=== PATIENT | female | born 1995 | race African-American/Black ===

== ENCOUNTER 2022-09-09 22:13 | Emergency (ER) | payer OTHER ==
[~2022-09-09] VITALS: Ht 170.2 cm; Wt 62.4 kg
[2022-09-09 22:15] VITALS: BP 106/68
[2022-09-10] MEDS ORDERED: IBUPROFEN 600MG TABLET PO STA (00:02)
[2022-09-10] MEDS ORDERED: IPRATROPIUM BROMIDE (0.02%) 0.5MG/2.5ML NEB HHN STA (00:09)
[2022-09-10] MEDS ORDERED: ALBUTEROL (0.083%) 2.5MG/3ML NEB HHN STA (00:09)
[2022-09-10 00:10] LABS: CLARITY URINE CLEAR (CLEAR); COLOR URINE DARK YELLOW (YELLOW); KETONES URINE TRACE (NEGATIVE); LEUKOCYTE ESTERASE URINE NEGATIVE (NEGATIVE); NITRITE URINE NEGATIVE (NEGATIVE); OCCULT BLOOD URINE TRACE (NEGATIVE); PROTEIN URINE TRACE (NEGATIVE); SPECIFIC GRAVITY URINE 1.035 (1.005-1.030)
[2022-09-10] MEDS ORDERED: ALBU18HF2 IH (01:31)
[2022-09-10] MEDS ORDERED: NAPR-681 PO (01:31)
[2022-09-10] MEDS ORDERED: D-ME473S50 PO (01:31)
== END 2022-09-10 02:09 | disposition home or self-care (01) ==
LOC: ER 22:13
DX: J06.9 Acute upper respiratory infection, unspecified (principal); M94.0 Chondrocostal junction syndrome [Tietze]
CPT/HCPCS: 71045; 81025; 93005; 94640; 99285